=== PATIENT | female | born 1965 | race Caucasian/White ===

== ENCOUNTER 2017-11-24 08:45 | Day surgery (SDC) | payer BC ==
[~2017-11-24] VITALS: Ht 157.5 cm; Wt 115.7 kg
[~2017-11-24 08:45] MED LIST: BCP; Bentyl10 MG; DULO30 PO; Dicyclomine HCl10 MG PO; HYDACE5 PO; Keflex500 MG PO; LORA1 PO; Percocet 5-3251 EACH PO; TRAM50 PO; Vistaril25 MG PO; Xanax0.5 MG PO; [UNRECOGNIZED DRUG - SUPPLY] TP; bentyl PO
== END 2017-11-24 13:35 | disposition home or self-care (01) ==
LOC: ORSCMMR 08:45 → ORD 10:30 → ORSCMMR 13:35
PROVIDERS: Orthopaedic Surgery
PROC: 0SBD4ZZ Excision of Left Knee Joint, Percutaneous Endoscopic Approach (ICD-10-PCS; principal; 2017-11-24 10:30)
DX: S83.242A Other tear of medial meniscus, current injury, left knee, initial encounter (principal); E66.01 Morbid (severe) obesity due to excess calories; Z68.42 Body mass index [BMI] 45.0-49.9, adult
CPT/HCPCS: J0171; J0690; J1100; J2250; J2405; J3010; J7120

== ENCOUNTER → 2018-08-17 | Outpatient (CLI) | payer BC | END | disposition home or self-care (01) | LOC: LAB 15:10 → LAB SHORT 15:10 | DX: R07.9 Chest pain, unspecified (principal) | CPT/HCPCS: 85379 ==

== ENCOUNTER → 2018-12-28 | Outpatient (CLI) | payer OTHER ==
[2018-12-30 14:06] LABS: HPV 16 Negative (Negative); HPV 18 Negative (Negative); HPV OTHER HR TYPES Negative (Negative)
== END | disposition home or self-care (01) ==
LOC: LAB SHORT 12:21 → LAB 12:21
PROVIDERS: Nurse Practitioner Obstetrics & Gynecology
DX: Z01.419 Encounter for gynecological examination (general) (routine) without abnormal findings (principal)
CPT/HCPCS: 87624; G0123